=== PATIENT | male | born 1945 | race Caucasian/White ===

== ENCOUNTER → 2017-07-09 | Outpatient (CLI) | payer BC ==
[~2017-07-09] MED LIST: ASPEC325; DIAZ2TAB PO; FLUT0.15 NAE; LSN20 PO; METO1TAB69 PO; ROSU20TA PO; ULT50X PO
--- NOTE | 2017-07-10 06:12 | PAP/PSG TECHNICIAN REPORT ---
[facility] Library Sales Consultant Polysomnogram Report Study name: None Report date: 07/10/2017 Study date: 07/09/2017 Referring Physician: Meg Tavera M.D. Name: JESSICA CHRIS Juan Interpreting Physician: Junior Tavera M.D. Date of : 1945 Library Sales Consultant: Estephania Melgoza [facility]. Sex: Male Age: 71 StudyType: PSG Weight: 218 lbs Height: 71 years, Height 5' 9" Neck Circum: 16 inches BMI: 32.19 Medications: Albuterol 108 ( 90 Base), Benzonatate 100 mg, Hydrocortisone Sami-Pramoxine 2.5-1%, Gualfenesin-Codeine 100-10 MG/5ML, Diazepam 2 mg, Acetaminophen-Codeine 300-30 mg, Lisinopril 20 mg, Rosuvastatin 20 mg, Triamcinolone acetaminophen 5-325 mg, Flucinonide 0.05%, Desonide 0.05% lotion, Cialis 5 mg Patient History 71 yr. old male here for a possible split night sleep study with [id number] in room 5. Patient complains of witnessed apneas and snoring. Patients [place] sleepiness scale score is 8/24. Parameters Monitored NPSG: E1-M2, E2-M1, Fp1-M2, Fp2-M1, F3-M2, F4-M2, F4-M1, C3-M2, C4-M2, C4-M1, O1-M2, O2-M2, O2-M1, T3-M2, T4-M1, P3-M2, P4-M1, CHIN1, CHIN2, HR, EKG, Legs, PFLOW, SNOR, FLOW, CFLOW, Tidal Volume, THOR, ABDO, SpO2, PLTH, CPRESS, ETCO2 Wave, ETCO2, pH Sleep Architecture Sleep Stages Time at Lights Off 11:00:51 PM STAGES Time (min.) TST (%) Time at Lights On 5:58:51 AM Wake 187.5 -- Total Recording Time (TRT) 418.00 min. N1 40.5 18 Total Sleep Period (TSP) 399.5 min. N2 114.0 49 Total Sleep Time (TST) 230.5min. N3 48.0 21 Awake Time 187.5 min. REM 28.0 12 Wake after Sleep Onset 169.0 min. Sleep Efficiency (SE) 55 % Sleep Onset Latency (JUAN ALBERTO) 18.5 min. Number of Stage 1 Shifts None Awakenings 43 Stage Changes 142 Number of REM periods 2 REM 28.0 12 REM Latency 366.5 min. NREM 202.5 88 Body Position Analysis Supine Right Left Side Prone Vertical Total Sleep Time (min.) 221.8 25.5 73.5 99.00 0.0 4.1 Total Sleep Time (%) 57% 11% 32% 43 0% N/A% Total Sleep Time REM (min.) 28.0 0.0 0.0 None 0.0 0.0 Total Sleep Time NREM (min.) 103.5 25.5 73.5 None 0.0 0.0 Intermittent Wake (min.) 90.3 36.4 56.7 None 0.0 4.1 Total Sleep Period (%) 54% None None None None None Arousals Myoclonus (PLM) * Events Count Index Events Count Index Spontaneous 7 2 Events Awake (PLMW) 82 26.2 Respiratory 27 9.1 Events Asleep w/ Arousal (PLMA) 3 0.8 PLM 1 1 Events Asleep w/o Arousal (PLMS) 8 2.1 Snoring 14 4 Total Asleep 11 2.9 Total 46 12 Total 93 13 Respiratory Analysis * CA OA MA CH H RERA Total Count 5 7 10 0 107 0 129 Index 1.3 1.8 2.6 0 27.9 0 33.6 Mean Duration 18.9 20.0 24.0 0.00 24.0 0.0 23.6 Longest Duration 26.8 31.5 31.0 0.00 31.0 0.0 59.2 Respiratory Event Summary Total Supine ~Supine Right Left Prone REM NREM Apneas Count 22 19 3 2 1 N/A 0 22 Index 5.7 9 2 4.7 0.8 N/A 0 7 Hypopneas (4% Desat) Count 107 73 34 16 18 N/A 5 102 Index 27.9 33.3 21 37.6 14.7 N/A 10.7 30.2 Apneas & All Hypopneas Count 129 92 37 18 19 N/A 5 124 Index 33.6 42 22 42 16 N/A 10.7 36.7 Respiratory Events (Supervisor Fleshing+All Hyp+RERA) Count 129 92 37 18 19 N/A 5 124 Index 33.6 42 22 42.4 15.5 N/A 10.7 36.7 Respiratory Related Arousal Count 27 92 10 9 1 N/A 0 35 Index 9.1 11 6 21 1 N/A 0 10 Snoring Analysis Supine Right Left Prone REM NREM Total Snore duration 38.0 min Snores count 750 200 749 N/A 161 1,538 1,699 Snore mean duration 1.3 Sec Snores index 342 471 611 N/A 345.0 455.7 442.3 TST with snoring (%) 16.5% SpO2 Analysis Total REM NREM Awake <50% 0.0 min. 0.0 min. 0.0 min. 0.0 min. 51 - 60% 0.0 min. 0.0 min. 0.0 min. 0.0 min. 61 - 70% 0.0 min. 0.0 min. 0.0 min. 0.0 min. 71 - 80% 0.2 min. 0.0 min. 0.0 min. 0.2 min. 81 - 90% 264.7 min. 27.7 min. 156.6 min. 80.4 min. 91 - 100% 129.7 min. 0.3 min. 45.9 min. 83.5 min. Average 89 85 89 91 Minimum SpO2 80 81 82 80 Desaturation Event Index 25.4 21.4 37.3 14.1 # Desat. Events below 89% 145 10 104 31 Time(%) with Saturation below 89% 35.7 6.9 23.1 5.7 Time(min.) with Saturation below 89% 140.7 27.1 91.3 22.4 Heart Rate Analysis End Tidal CO2 Analysis Min (bpm) Max (bpm) Average (bpm) TSP (mins) % of TSP Awake 60 300 73 Above 55 mmHg 0.0 0.0 NREM 59 82 65 50-55 mmHg 0.0 0.0 REM 60 80 68 45-50 mmHg 0.1 0.1 Overall 59 82 65 40-45 mmHg 55.5 24.1 35-40 mmHg 144.5 62.7 30-35 mmHg 25.9 11.2 Average ETCO2 0.2 Supplemental O2 Values Minimum O2 level: None Value Start Time End Time Library Sales Consultant Comments Mr. Martini slept in the right, left, and supine positions. No cardiac arrhythmia or PLMs noted. No bruxism noted. Snoring was noted and scored as a 3 on a scale of 0 through 5. (0=no snoring, 5=snoring loud enough to be heard through a closed door or down the diaz way) Mr. Martini awoke to use the restroom four times during the night. Mr. Martini stated, I had a rough night. The final report will be interpreted and signed by a sleep physician. The completed physician report will then be placed in the patient medical record. Therapy (cm H2O) 0 TIB (min.) 418.0 TST (min.) 230.5 Sleep Onset (min.) 18.5 REM Onset From Sleep (min.) 366.5 Sleep Efficiency % 55 Wakefulness (%) 45 Wakefulness (min.) 187.5 NREM 1 (%) 18 NREM 1 (min.) 40.5 NREM 2 (%) 49 NREM 2 (min.) 114.0 NREM 3 (%) 21 NREM 3 (min.) 48.0 REM (%) 12 REM (min.) 28.0 # Arousals 46 Arousal Index 12 # Snore 1,699 Snore Index 442.3 AHI 33.6 AHI Supine 42 AHI Non-Supine 22 NREM AHI 36.7 REM AHI 10.7 RDI 33.6 # Obstructive Apnea 7 # Central Apnea 5 # Mixed Apnea 10 # Hypopneas 107 RERAs 0 Total Respiratory Events 144 Time Below SpO2 89% (min.) 118.3 Mean NREM SpO2 (%) 89 Mean REM SpO2 (%) 85 Mean Sleep SpO2 (%) 88 Min NREM SpO2 (%) 82 Min REM SpO2 (%) 81 Position Supine (min.) 221.8 Position Non-supine (min.) 99.0 LM Index Sleep 2.9 LM Index NREM 3.0 LM Index REM 2.1 Mean Heart Rate (bpm) 65 Min Heart Rate (bpm) 59
--- NOTE | 2017-07-27 07:51 | POLYSOMNOGRAPH REPORT ---
REFERRING PERSON: Dr. Junior Tavera. DIGITAL FIELD SERVICE TECHNICIAN: Estephania Melgoza. Mr. Martini is a 71-year-old male sent for a split night sleep study. He complains of witnessed apneas and snoring. His [place] sleepiness scale score on the evening of this study is 8. BMI is 32.19. Following the technical and digital specifications of the [place] [employer] (AASM) a standard diagnostic polysomnogram was performed monitoring EEG, EOG, EMG (chin and leg deviations), oxygen saturation, body position, digital video, respiratory effort and airflow. The sleep Stage and event scoring was based on the AASM Manual for the Scoring of Sleep and Associated Events 2007 edition. Apneas are defined as a drop in the peak thermal sensor excursion by >90% of baseline for at least 10 seconds. Hypopneas were scored using the 4% oxygen desaturation rule ([employer]) and a decrease in the nasal pressure excursions by >30% of baseline for at least 10 seconds. Respiratory effort-related arousal (RERA's) is defined as a sequence of breaths lasting at least 10 seconds characterized by increasing respiratory effort or flattening of the nasal pressure waveform leading to an arousal from sleep when the sequence of breaths does not meet criteria for an apnea or hypopnea. Apnea Hypopnea index (AHI) is defined as the number of apneas and hypopneas occurring in an hour of sleep. Respiratory disturbance index (RDI) is defined as the number of apneas, hypopneas, and RERA's occurring in an hour of sleep. Mr. Martini's total sleep period time was 399.5 minutes. Total sleep time was 230.5 minutes. Sleep efficiency was 55%. Latency to sleep onset was 18.5 minutes with wake after sleep onset of 169 minutes. Total non-REM sleep time was 202.5 minutes. He spent 18% of that time in N1 sleep, 49% in N2 sleep and 21% in N3 sleep. REM latency was 366.5 minutes. Total REM sleep time was 28 minutes or 12% of total sleep time. There were 46 cortical arousals from sleep. Seven of these arousals were spontaneous, 27 were due to respiratory events, 1 due to periodic limb movements of sleep and 14 were due to snoring. There were 11 periodic limb movements of sleep noted on this test. Limb movement index was 2.9. Limb movement with arousal index was 0.8. There were 5 central, 7 obstructive and 10 mixed apnea on this test. Additionally, there were 107 hypopnea. Apnea-hypopnea index was 33.6 consistent with severe sleep apnea. Hypopneas were of obstructive origin. Supine AHI was 42, REM AHI was 10.7. 1,699 snoring events were recorded. Total sleep time with snoring was 16.5%. Mean saturation during sleep was low at 89% with desaturations to 80%. Saturations were less than 89 for 140.7 minutes of recorded time. There was no cardiac ectopy noted on this study. During sleep, heart rates ranged from a low of 59 beats per minute to a high of 82 beats per minute. End-tidal CO2 was recorded on this test. End tidal CO2s were between 40 and 45 mmHg for 24.1% of total sleep period time, between 35 and 40 mmHg for 62.7% and between 30 and 35 mmHg for 11.2% of total sleep period time. IMPRESSION AND PLAN: A 71-year-old male with evidence of severe sleep apnea and significant nocturnal hypoxemia on this sleep study. This patient would likely benefit from positive airway pressure therapy. He should return to the sleep lab for a full night titration and then based on those results be started on equipment at home. A download from his machine can be reviewed in 1 month both to check compliance as well as AHI and further pressure adjustments can occur at that time.
== END | disposition home or self-care (01) ==
LOC: C.NEUR 20:00
PROVIDERS: ATTEND Family Medicine
DX: R06.83 Snoring (principal); R06.81 Apnea, not elsewhere classified; I10 Essential (primary) hypertension